=== PATIENT | male | born 1935 | race Caucasian/White ===

== ENCOUNTER 2018-01-29 15:38 | Emergency (ER) | payer MEDICARE, BC ==
[2018-01-29 17:55] LABS: BASOPHILS 0.2 % (0-2); EOSINOPHILS 0.6 % (0-7); HEMATOCRIT 44.6 % (42.0-54.0); HEMOGLOBIN 15.4 g/dL (13.5-17.5); IMMATURE GRANULOCYTES 0.2 % (0-5); LYMPHOCYTES 23.4 % (15-50); MCH 31.2 pg (26.0-34.0); MCHC 34.5 g/dL (31.0-37.0); MCV 90.5 fL (80.0-100.0); MEAN PLATELET VOLUME 9.5 fL (7.4-10.4); MONOCYTES 7.5 % (2-11); NEUTROPHILS 68.1 % (40-80); PLATELET COUNT 206 10x3/uL (130-400); RBC 4.93 10x6/uL (4.20-6.10); RDW 12.9 % (11.5-14.5); WBC 8.2 10x3/uL (4.8-10.8)
[2018-01-29 18:22] LABS: ALBUMIN 3.7 g/dL (3.4-5.0); ALKALINE PHOSPHATASE 63 U/L (46-116); ALT (SGPT) 27 U/L (10-68); BILIRUBIN - TOTAL 0.32 mg/dL (0.2-1.3); CALC OSMOLALITY 284 mosm/kg (275-300); CALCIUM 8.4 mg/dL (8.5-10.1); CARBON DIOXIDE 23.8 mmol/L (21.0-32.0); CHLORIDE - SERUM 105 mmol/L (98-107); GLUCOSE 131 mg/dL (74-106); POTASSIUM - SERUM 4.1 mmol/L (3.5-5.1); PROTEIN - SERUM 7.3 g/dL (6.4-8.2); SODIUM 139 mmol/L (136-145); TROPONIN-I < 0.017 ng/mL (0.000-0.060); UREA NITROGEN 27 mg/dL (7-18); eGFR NON AFRICAN AMERICAN 76 mL/min (90-120)
== END 2018-01-29 18:40 | disposition home or self-care (01) ==
LOC: D.ER 15:38
PROVIDERS: Physician Assistant Medical
DX: S22.42XA Multiple fractures of ribs, left side, initial encounter for closed fracture (principal); W01.0XXA Fall on same level from slipping, tripping and stumbling without subsequent striking against object, initial encounter; Y93.89 Activity, other specified; Y92.019 Unspecified place in single-family (private) house as the place of occurrence of the external cause; Z85.46 Personal history of malignant neoplasm of prostate; R00.1 Bradycardia, unspecified; I49.3 Ventricular premature depolarization

== ENCOUNTER → 2019-06-26 13:08 | Outpatient (CLI) | payer MEDICARE, BC | END | disposition home or self-care (01) | LOC: D.HCCARDIO 13:08 | PROVIDERS: ATTEND Internal Medicine Cardiovascular Disease | DX: I34.0 Nonrheumatic mitral (valve) insufficiency (principal) ==